=== PATIENT | male | born 1940 | race Caucasian/White ===

== ENCOUNTER 2018-10-24 11:22 | Observation (INO) | payer MEDICARE, OTHER ==
[2018-10-24 11:51] VITALS: BMI 29.0
--- NOTE | 2018-10-24 12:19 | PDOC ---
History of Present Illness - General Chief Complaint: Chest Pain Stated Complaint: CHEST PAIN / NUMB LF ARM Time Seen by Provider: 10/24/18 12:18 History Source: Patient, Family Exam Limitations: Language Barrier - History of Present Illness Initial Comments: 10/24/18 13:10 History obtained with assistance of granddaughter at bedside (Kim ) Patient is a 78 year old male recently immigrated from [facility] 2 months ago, with history of Afib (not on anticoagulation), hypertension, presents with complaint of chest pain worsening over the past three days. Patient describes left sided pressure and tightness that radiates down his left arm associated with shortness of breath, and dizziness. Pain is exertional lasting 10-15 minutes, resolving with rest; however pain also occurs with rest. He denies having these symptoms in the past. For the past three weeks, he endorses associated palpitations that prompted him to double his dose of Amiodarone. Patient also endorses nausea without vomiting, and nonproductive cough ongoing for the past week. Denies hemoptysis. Patient last visited his homicide investigator in [facility] one year ago. Denies history of OH, stress test, or cardiac catheterization. Uncertain as to why patient was never started on anticoagulation; patient denies history of hemorrhagic stroke, any GI bleeding, history of frequent falls. He denies subjective fevers, chills. PMH: Afib, hypertension, benign prostatic hyperplasia, glaucoma (right eye), gastritis PSH: Cholecystectomy, appendectomy, right inguinal hernia repair, prostate resection, right eye cataract surgery Family history: Father- at 42 years old secondary to CO poisoning Mother- at 89 years old 'old age' No history of OH, stroke, or cancer in his family. Allergies: NKDA Social: Lives with his granddaughter. Denies smoking history. Drinks one glass of wine on holidays. 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 Ambulates at baseline without cane, or walker. Past History - Travel Traveled outside of the country in the last 30 days: No Close contact w/someone who was outside of country & ill: No - Past Medical History Allergies/Adverse Reactions: Allergies Allergy/AdvReac Type Severity Reaction Status Date / Time No Known Allergies Allergy Verified 10/24/18 11:49 Home Medications: Ambulatory Orders Amiodarone HCl [Cordarone -] 200 mg PO BID 10/24/18 Amlodipine Besylate/Valsartan [Amlodipine-Valsartan 5-160 mg] 1 each PO DAILY Aspirin [ASA -] 81 mg PO DAILY 10/24/18 Digoxin [Lanoxin -] 0.25 mg PO DAILY 10/24/18 Omeprazole Magnesium [Prilosec Otc] 20 mg PO DAILY 10/24/18 Cardiac Disorders: Yes Hx Myocardial Infarction: No CVA: No COPD: No DVT: No Hx Glaucoma: Yes HTN: Yes Other medical history: poor historian - Surgical History Abdominal Surgery: Yes (hernia repair) Appendectomy: Yes Cholecystectomy: Yes Other Surgical History: 10/24/18 13:24 Prostate resection - Family Disease History Family Disease History: Other: Father ( due to CO poisoning (42 years old)) - Immunization History Immunization Up to Date: Yes - Suicide/Smoking/Psychosocial Hx Smoking History: Never smoked Hx Alcohol Use: No Drug/Substance Use Hx: No Substance Use Type: None Patient Lives Alone: No Review of Systems - Review of Systems Constitutional: No: Chills, Diaphoresis, Fever, Night Sweats HEENTM: Yes: Cataracts. No: Recent change in vision, Double Vision, Throat Pain , Throat Swelling, Difficulty Swallowing Respiratory: Yes: Cough, Shortness of Breath. No: Stridor, Wheezing, Productive cough, Hemoptysis Cardiac (ROS): Yes: Chest Pain, Irregular Heart Rate, Lightheadedness, Palpitations, Chest Tightness. No: Edema, Syncope ABD/GI: No: Abdominal Distended, Blood Streaked Bowels, Diarrhea, Rectal Bleeding, Vomiting, Tarry Stools : No: Burning, Dysuria, Discharge, Hematuria Musculoskeletal: No: Back Pain, Joint Swelling, Muscle Weakness, Joint Stiffness Neurological: Yes: Numbness (left arm), Dizziness. No: Headache, Weakness *Physical Exam - Vital Signs Last Vital Signs Temp Pulse Resp BP Pulse Ox 97.5 F L 57 L 18 122/80 99 10/24/18 11:49 10/24/18 11:49 10/24/18 11:49 10/24/18 11:49 10/24/18 11:49 - Physical Exam General Appearance: Yes: Appropriately Dressed. No: Apparent Distress, Disheveled HEENT: positive: EOMI, GLORIA. negative: Scleral Icterus (R), Scleral Icterus (L) , Pharyngeal Erythema, Tonsillar Exudate Neck: positive: Trachea midline, Supple. negative: Carotid bruit, Lymphadenopathy (R), Lymphadenopathy (L), Thyromegaly Respiratory/Chest: positive: Lungs Clear, Normal Breath Sounds. negative: Respiratory Distress, Accessory Muscle Use, Crackles, Rales, Wheezing Cardiovascular: positive: S1, S2, Irregularly Irregular, Other (chest pain notreproducible upon palpation). negative: Edema, Murmur Vascular Pulses: Dorsalis-Pedis (R): 2+, Doralis-Pedis (L): 2+ Gastrointestinal/Abdominal: positive: Soft, Other (scar right lower quadrant from appendectomy. laparoscopic scars from cholecystectomy). negative: Guarding , Rebound, Tenderness, Hepatomegaly Musculoskeletal: negative: Decreased Range of Motion Extremity: positive: Normal Range of Motion. negative: Swelling, Calf Tenderness (no calf tenderness bilaterally) Integumentary: positive: Dry, Warm, Other (bruising noted from 'cupping' upon back and left chest) Neurologic: positive: corporate claims examiner II-XII NML intact, Fully Oriented, Alert, Motor Strength 5/5 Heart Score/ECG Review - History History: Moderately suspicious - Electrocardiogram EKG: Non specific repolarization disturbance - Age Age: >/= 65 - Risk Factors Risk Factors Heart Score: Yes Hx Hypertension - Troponin Troponin: </= normal limit ED Treatment Course - LABORATORY CBC & Chemistry Diagram: 10/24/18 13:13 10/24/18 13:13 Medical Decision Making - Medical Decision Making 10/24/18 13:32 Patient is a 78 year old male with history of Afib (not on anticoagulation), hypertension, presents with complaint of chest pressure and tightness. Differential diagnosis of ACS, PE, CHF, hyperthyroidism/ hypothyroidism due to recent increase in Amiodarone. EKG shows Afib with slow ventricular response at 58 BPM. No comparison available Will draw CBC, CMP, BNP, troponins, TSH, digoxin level, d-dimer Ordered chest radiograph, cardiac ECHO carotid duplex. 10/24/18 14:19 Chest radiograph without acute infiltrates. Troponin 0.02 TSH 2.41 Digoxin level 1.65 D-dimer 290; PE less likely on differential, despite recent travel history BNP elevated at 1410.2- no prior values for comparison. Patient does not appear fluid overloaded. HEART score 5; moderate score 10/24/18 15:08 Admit for Telemetry observation *DC/Admit/Observation/Transfer Diagnosis at time of Disposition: Unstable angina - Discharge Dispostion Decision to Admit order: Yes - Referrals - Patient Instructions - Post Discharge Activity
[2018-10-24 13:31] LABS: HEMATOCRIT 45.6 % (35.4-49); HEMOGLOBIN 15.2 GM/dL (11.7-16.9); MCH 31.4 pg (25.7-33.7); MCHC 33.4 g/dl (32.0-35.9); MEAN CELL VOLUME 94.1 fl (80-96); MEAN PLT VOLUME 10.4 fl (7.5-11.1); PLATELET COUNT 132 K/MM3 (134-434); RBC 4.85 M/mm3 (4.00-5.60); RDW 13.1 % (11.9-15.9); WHITE BLOOD COUNT 4.5 K/mm3 (4.0-10.0)
[2018-10-24 14:11] LABS: ALBUMIN 3.7 g/dl (3.4-5.0); ALK PHOS 87 U/L (45-117); ANION GAP 4 MMOL/L (8-16); BILIRUBIN,TOTAL 1.2 mg/dL (0.2-1); BLOOD UREA NITROGEN 17 mg/dL (7-18); CALCIUM 8.8 mg/dL (8.5-10.1); CHLORIDE 109 mmol/L (98-107); CO2 29 mmol/L (21-32); CREATININE 1.3 mg/dL (0.55-1.3); GLUCOSE,RANDOM 82 mg/dL (74-106); N-TERMINAL BNP 1410.2 pg/ml (5-450); POTASSIUM 4.2 mmol/L (3.5-5.1); SGOT/AST 27 U/L (15-37); SGPT/ALT 36 U/L (13-61); SODIUM 141 mmol/L (136-145); TOT PROT 6.4 g/dl (6.4-8.2)
--- NOTE | 2018-10-24 15:09 | PDOC ---
Documentation entered by Maria Isabel Ricci SCRIBE, acting as scribe for Arie Carias MD. Arie Carias MD: This documentation has been prepared by the Radhames hearn Amanda, SCRIBE, under my direction and personally reviewed by me in its entirety. I confirm that the documentation accurately reflects all work, treatment, procedures, and medical decision making performed by me. Attending Attestation - Resident Resident Name: Ezio Velez - ED Attending Attestation I have performed the following: I have examined & evaluated the patient, The case was reviewed & discussed with the resident, I agree w/resident's findings & plan, Exceptions are as noted - HPI HPI: 10/24/18 13:06 The patient is a 78 year old male, with a significant past medical history of Afib (not on AC), hypertension, benign prostatic hyperplasia, glaucoma (right eye), gastritis, who presents to the emergency department with 4 days of chest pain with associated shortness of breath and dizziness. He reports the chest pain as a pressure which radiates to his left arm. He also reports left upper extremity numbness. He reports traveling back from [facility] 2 months ago. The patient denies headache. The patient denies fever, chills, nausea, vomit, diarrhea and constipation. The patient denies dysuria, frequency, urgency and hematuria. Allergies: NKDA Past surgical history: hernia repair (R inguinal), prostatectomy, Left cataract Social history: occasional ETOH - Physicial Exam PE: 10/24/18 13:06 GENERAL: Awake, alert, and fully oriented, in no acute distress. HEAD: No signs of trauma EYES: PERRLA, EOMI, sclera anicteric, conjunctiva clear ENT: Auricles normal inspection, hearing grossly normal, nares patent, oropharynx clear without exudates. Moist mucosa NECK: Nontender, no stepoffs, Normal ROM, supple, no lymphadenopathy, JVD, or masses LUNGS: Breath sounds equal, clear to auscultation bilaterally. No wheezes, and no crackles HEART: Regular rate and rhythm, normal S1 and S2, no murmurs, rubs or gallops ABDOMEN: Soft, nontender, normoactive bowel sounds. No guarding, no rebound. No masses EXTREMITIES: Normal range of motion, no edema. No clubbing or cyanosis. No cords, erythema, or tenderness NEUROLOGICAL: Cranial nerves II through XII intact. 5/5 strength and sensation in all extremities, Normal speech, normal cerebellar function SKIN: Warm, Dry, normal turgor, no rashes or lesions noted. - Medical Decision Making 10/24/18 14:29 78 M with chest pain. Will r/o ACS. Also consider PE given recent travel. Pt with no evidence of volume overload but consider CHF. - Labs, trop, BNP, ddimer - CXR - Admit tele 10/24/18 15:48 Pt admitted to hospitalist 10/24/18 17:47 Dr. Arriaza now requesting transfer to [facility]
--- NOTE | 2018-10-24 15:09 | CON.CARD ---
Consult Consult Specialty:: Cardiology Referred by:: chest pain, afib Reason for Consultation:: chest pain, afib - History of Present Illness Chief Complaint: chest pain, palpitations History of Present Illness: 78 year old man with pmh HTN, AFib not on AC on amio and digoxin, bph, glaucoma , gastritis, recently moved from [facility] 2 months ago now living with his grandamaury who is an RN came to the ER with c/o 3 day history of L sided chest tightness radiating to his L arm with associated sob that has been mainly with exertion but also at rest at times and 3 week h/o palpitations for which he increased his amiodarone to 200mg bid. Also notes dizziness over the past few days. As per his granddaughter she believes he was not taking his medications while in the [facility] and recently restarted his Digoxin. Never had an ischemic work up previously. Not sure why he is not on AC, no obvious contraindications. Pt was seen and examined in the ER in [place]. currently comfortable asymptomatic. - History Source History Provided By: Patient, Family Member Limitations to Obtaining History: Language Barrier - Past Medical History Cardio/Vascular: Yes: AFIB, HTN Renal/: Yes: BPH - Alcohol/Substance Use Hx Alcohol Use: No - Smoking History Smoking history: Never smoked - Social History Usual Living Arrangement: With Child ADL: Family Assistance History of Recent Travel: No Home Medications - Allergies Allergies/Adverse Reactions: Allergies Allergy/AdvReac Type Severity Reaction Status Date / Time No Known Allergies Allergy Verified 10/24/18 11:49 - Home Medications Home Medications: Ambulatory Orders Amiodarone HCl [Cordarone -] 200 mg PO BID 10/24/18 Amlodipine Besylate/Valsartan [Amlodipine-Valsartan 5-160 mg] 1 each PO DAILY Aspirin [ASA -] 81 mg PO DAILY 10/24/18 Digoxin [Lanoxin -] 0.25 mg PO DAILY 10/24/18 Omeprazole Magnesium [Prilosec Otc] 20 mg PO DAILY 10/24/18 Family Disease History - Family Disease History Family History: Denies Review of Systems - Review of Systems Constitutional: denies: No Symptoms, Chills, Diaphoresis, Fever, Lethargy, Loss of Appetite, Malaise, Night Sweats, Unintentional Wgt. Loss, Weakness, Other Eyes: denies: No Symptoms, Blind Spots, Blurred Vision, Double Vision, Eye Pain , Floaters, Photophobia, Recent Change in Vision, Other HENT: denies: No Symptoms, Difficult Swallowing, Ear Discharge, Ear Pain, Epistaxis, Gingival Bleeding, Hearing Loss, Mouth Swelling, Nasal Congestion, Ocular Prosthesis, Throat Pain, Toothache, Ringing in Ears, Other Neck: denies: No Symptoms, Decreased ROM, Lumps, Pain on Movement, Stiffness, Swollen Glands, Tenderness, Other Cardiovascular: reports: Chest Pain, Palpitations, Shortness of Breath. denies : No Symptoms, Edema, Other Respiratory: reports: SOB, SOB on Exertion. denies: No Symptoms, Cough, Exercise Intolerance, Hemoptysis, Orthopnea, PND, Snoring, Wheezing, Other Gastrointestinal: reports: Nausea. denies: No Symptoms, Abdominal Pain, Bloating, Constipation, Diarrhea, Dysphagia, Indigestion, Melena, Rectal Bleeding, Vomiting, Vomiting Blood, Other Genitourinary: denies: No Symptoms, Burning, Discharge, Dysuria, Flank Pain, Frequency, Hematuria, Incontinence, Lesions, Menses, Pain, Testicular Mass, Testicular Pain, Testicular Swelling, Urgency, Vaginal Bleeding, Other Breasts: denies: No Symptoms Reported, See HPI, Breast Implants, Discharge from Nipple, Lumps, Pain, Skin Changes, Other Musculoskeletal: denies: No Symptoms, Back Pain, Crepitus, Decreased ROM, Extremity Pain, Joint Pain, Joint Swelling, Muscle Pain, Muscle Cramps, Muscle Weakness, Other Integumentary: denies: No Symptoms, Blister, Bruising, Change in Color, Eczema, Erythema, Incision, Lesions, Lump, Pallor, Pruritis, Rash, Wound, Other Neurological: reports: Dizziness. denies: No Symptoms, Change in LOC, Change in Speech, Confusion, Headache, Incoordination, Numbness, Parasthesia, Pre- Existing Deficit, Seizure, Syncope, Tremors, Unsteady Gait, Weakness, Other Endocrine: denies: No Symptoms, Excessive Sweating, Flushing, Increased Hunger, Increased Thirst, Intolerance to Cold, Intolerance to Heat, Unexplained Weight Gain, Unexplained Weight Loss, Other Hematology/Lymphatic: denies: No Symptoms, Easily Bruised, Excessive Bleeding, Swollen Glands, Other Psychiatric: denies: No Symptoms, Altered Sleep Pattern, Anxiety, Depression, Hallucinations, Panic, Paranoia, Suicidal, Other - Risk Factors Known Risk Factors: Yes: Age, Hypertension Vital Signs: Vital Signs Temperature 97.5 F L 10/24/18 11:49 Pulse Rate 58 L 10/24/18 12:54 Respiratory Rate 16 10/24/18 12:54 Blood Pressure 147/91 10/24/18 12:54 O2 Sat by Pulse Oximetry (%) 97 10/24/18 12:54 Constitutional: Yes: Well Nourished, No Distress, Calm Eyes: Yes: Conjunctiva Clear, EOM Intact, PERRL HENT: Yes: Atraumatic, Normocephalic Neck: Yes: Supple, Trachea Midline Respiratory: Yes: Regular, CTA Bilaterally. No: Rales, Rhonchi, Wheezes Gastrointestinal: Yes: Normal Bowel Sounds, Soft. No: Distention, Tenderness Renal/: Yes: WNL Cardiovascular: Yes: Pulse Irregular. No: Regular Rate and Rhythm, Bradycardia , Tachycardia, Gallop, Rub, Varicosities JVD: No Carotid Bruit: No PMI: Non-Displaced Heart Sounds: Yes: S1, S2. No: Split S2, S3, S4, Clicks, Gallop, Rub, Bruit Murmur: No: Systolic Murmur, Diastolic Murmur Musculoskeletal: Yes: WNL Extremities: Yes: WNL Edema: No Peripheral Pulses WNL: Yes Peripheral Pulses: 2+ Left Doralis Pedis, 2+ Right Dorsalis Pedis Integumentary: Yes: WNL Neurological: Yes: WNL, Alert, Oriented, Cran Nerves II-XII Intact ...Motor Strength: WNL Psychiatric: Yes: WNL, Alert, Oriented - Other Data Labs, Other Data: CBC, BMP 10/24/18 13:13 10/24/18 13:13 Troponin, BNP 10/24/18 13:13 Troponin I < 0.02 B-Natriuretic Peptide 1410.2 H Troponin, BNP 10/24/18 13:13 Troponin I < 0.02 B-Natriuretic Peptide 1410.2 H EKG-AFib 58bpm, no ischemia Echo: Pending Imaging - Results Chest X-ray: Report Reviewed, Image Reviewed EKG: Report Reviewed, Image Reviewed Other: Report Reviewed, Image Reviewed Assessment/Plan 78 year old man with pmh HTN, AFib not on AC on amio and digoxin, bph, glaucoma , gastritis, recently moved from [facility] 2 months ago now living with his granddazaid who is an RN came to the ER with c/o 3 day history of L sided chest tightness radiating to his L arm with associated sob that has been mainly with exertion but also at rest at times and 3 week h/o palpitations for which he increased his amiodarone to 200mg bid. Also notes dizziness over the past few days. As per his granddaughter she believes he was not taking his medications while in the [facility] and recently restarted his Digoxin. Never had an ischemic work up previously. Not sure why he is not on AC, no obvious contraindications. Chest pain/sob-concerning for typical angina/unstable angina -no ischemia on ekg -troponin x 1 wnl -add CK level to trop -trend serial cardiac enzymes and ekgs -admit to tele -cont ASA 81mg daily -start Lipitor -start full AC with heparin gtt or Lovenox (for both Afib and unstable angina) -no bblocker for now given sinus bradycardia while on Amio and Digoxin -check echo -if LVEF wnl and cardiac enzymes remain wnl, with no further chest pain, plan for nuclear stress test tomorrow to evaluate for ischemia -if any of the above abnl will recc cardiac cath -keep npo after midnight tonight except meds for stress test tomorrow Atrial fibrillation-unknown if chronic or paroxysmal -afib on ER ekg with controlled HR 58bpm -recent palpitations and thus he had been taking amiodarone 200mg bid for the past few weeks -no prior medical records available for review -not on a bblocker -Would stop amiodarone and Digoxin -monitor tele -if HR becomes uncontrolled would then start Metoprolol and titrate for HR control -was not on full AC prior to admission only ASA 81mg daily started recently by his granddaughter -start heparin gtt or Lovenox with plan for full AC on discharge
[2018-10-24 15:16] VITALS: TEMP 98.7
[2018-10-24] MEDS ORDERED: NITROGLYCERIN SUBLINGUAL 1/150 0.4 MG TAB SL PRN (16:53)
[2018-10-24] MEDS ORDERED: NITROGLYCERIN SUBLINGUAL 1/150 0.4 MG TAB SL ONE (16:53)
[2018-10-24] MEDS ORDERED: NITROGLYCERIN SUBLINGUAL 1/150 0.4 MG TAB ONE (17:02)
[2018-10-24] MEDS ORDERED: HEPARIN NA (PORCINE) 5,000 UNITS/ML 1ML VIAL IVPUSH PRN ×2 (17:10)
[2018-10-24] MEDS ORDERED: HEPARIN - 25,000 UNIT in SODIUM CHLORIDE 495 ML IV SCH (17:15)
[2018-10-24] MEDS ORDERED: CLOPIDOGREL BISULFATE 300 MG TABLET PO ONE (17:28)
[2018-10-24] MEDS ORDERED: ATORVASTATIN CA 80 MG TABLET (FP) PO ONE (17:28)
[2018-10-24] MEDS ORDERED: ASPIRIN 81 MG CHEWABLE TABLETS PO ONE (17:29)
[2018-10-24] MEDS ORDERED: HEPARIN NA (PORCINE) 5,000 UNITS/ML 1ML VIAL ONE (17:31)
[2018-10-24] MEDS ORDERED: HEPARIN INFUSION - 25,000 UNITS/500 ML INFUS.BAG IVPB ONE (17:31)
[2018-10-24] MEDS ORDERED: ASPIRIN 81 MG CHEWABLE TABLETS ONE (17:34)
[2018-10-24] MEDS ORDERED: CLOPIDOGREL BISULFATE 300 MG TABLET ONE (17:34)
[2018-10-24] MEDS ORDERED: ATORVASTATIN CA 80 MG TABLET (FP) ONE (17:35)
--- NOTE | 2018-10-24 17:48 | HP ---
Admitting History and Physical - Admission Chief Complaint: chest pain History of Present Illness: 78 year old male with pmh HTN, AFib not on AC on amio and digoxin, bph, glaucoma , gastritis, recently moved from [facility] 2 months ago now living with his granddaughter who is an RN presented to the ED with left sided chest pain and pressure radiation to left arm x3 days with sob and palpitations and dizziness. Increased palpitations x 3 weeks and increased palpitations and increased his dose of amio to 200 BID. Not on AC as not practiced in [facility]. While in ED pt reported to granddaughter his chest pain is worsen now and its going down his left arm History Source: Family Member Limitations to Obtaining History: Language Barrier - Past Medical History Cardiovascular: Yes: AFIB, HTN Renal/: Yes: BPH - Smoking History Smoking history: Never smoked - Alcohol/Substance Use Hx Alcohol Use: No - Social History ADL: Family Assistance History of Recent Travel: No Home Medications - Allergies Allergies/Adverse Reactions: Allergies Allergy/AdvReac Type Severity Reaction Status Date / Time No Known Allergies Allergy Verified 10/24/18 11:49 - Home Medications Home Medications: Ambulatory Orders Amlodipine Besylate/Valsartan [Amlodipine-Valsartan 5-160 mg] 1 each PO DAILY Aspirin [ASA -] 81 mg PO DAILY 10/24/18 Digoxin [Lanoxin -] 0.25 mg PO DAILY 10/24/18 Omeprazole Magnesium [Prilosec Otc] 20 mg PO DAILY 10/24/18 Review of Systems - Review of Systems Constitutional: reports: No Symptoms Eyes: reports: No Symptoms HENT: reports: No Symptoms Neck: reports: No Symptoms Cardiovascular: reports: Chest Pain, Palpitations, Shortness of Breath Respiratory: reports: SOB on Exertion Gastrointestinal: reports: No Symptoms Genitourinary: reports: No Symptoms Musculoskeletal: reports: No Symptoms Integumentary: reports: No Symptoms Neurological: reports: No Symptoms Endocrine: reports: No Symptoms Hematology/Lymphatic: reports: No Symptoms Psychiatric: reports: No Symptoms Physical Examination Vital Signs: Vital Signs Temperature 98.7 F 10/24/18 15:16 Pulse Rate 59 L 10/24/18 15:16 Respiratory Rate 16 10/24/18 15:16 Blood Pressure 136/87 10/24/18 15:16 O2 Sat by Pulse Oximetry (%) 96 10/24/18 15:16 Constitutional: Yes: Well Nourished Eyes: Yes: Conjunctiva Clear HENT: Yes: Atraumatic Neck: Yes: WNL Cardiovascular: Yes: Pulse Irregular, S1, S2, Other Respiratory: Yes: Regular, CTA Bilaterally Gastrointestinal: Yes: Normal Bowel Sounds, Soft Renal/: Yes: WNL Musculoskeletal: Yes: WNL Extremities: Yes: WNL Edema: No Integumentary: Yes: WNL Neurological: Yes: Alert, Oriented, Cran Nerves II-XII Intact Labs: CBC, BMP 10/24/18 13:13 10/24/18 13:13 Imaging - Results Chest X-ray: Report Reviewed, Image Reviewed Ultrasound: Report Reviewed Problem List - Problems (1) Unstable angina Code(s): I20.0 - UNSTABLE ANGINA Assessment/Plan Assessment: 78 year old male with acute chest pain and pressure Plan: 1. Unstable angina - Serial trop with ck next @1900 - Trop x1 neg - Send tsh, lipid, hgb a1c - Chest pain persistent, give nitro sl x1 now - Start heparin gtt - Discussed with Cardiology, in light of worsening/persistent cp will transfer for cardiac cath, case d/w grand daughter - Give plavix 600mg x1 now - Give additional asa 81mg now - plts 132 - Hold dig and amio Visit type - Emergency Visit Emergency Visit: Yes ED Registration Date: 10/24/18 Care time: The patient presented to the Emergency Department on the above date and was hospitalized for further evaluation of their emergent condition. - New Patient This patient is new to me today: Yes Date on this admission: 10/24/18 - Critical Care Critical Care patient: No
[2018-10-24 18:49] VITALS: BP 100/68; PULSE 52
[2018-10-24 19:22] LABS: CHOLESTEROL 121 mg/dL (50-200); HDL CHOLESTEROL 65 mg/dL (40-60); TRIGLYCERIDES 39 mg/dL (0-150)
--- NOTE | 2018-10-25 17:18 | EKG ---
Test Reason : Blood Pressure : / mmHG Vent. Rate : 058 BPM Atrial Rate : 046 BPM P-R Int : 000 ms QRS Dur : 094 ms QT Int : 430 ms P-R-T Axes : 000 008 001 degrees QTc Int : 422 ms ATRIAL FIBRILLATION WITH SLOW VENTRICULAR RESPONSE ABNORMAL ECG NO PREVIOUS ECGS AVAILABLE Confirmed by FOSTER MO MD ([id number]) on 10/25/2018 5:18:20 PM Referred By: Confirmed By:FOSTER MO MD
== END 2018-10-24 20:30 | disposition short-term general hospital (02) ==
LOC: JER 11:22 → JERBED 15:07
PROVIDERS: ADMIT Internal Medicine; ATTEND Internal Medicine
PROC: 3E033GC Introduction of Other Therapeutic Substance into Peripheral Vein, Percutaneous Approach (ICD-10-PCS; principal; 2018-10-24)
DX: I20.0 Unstable angina (principal); I10 Essential (primary) hypertension; I48.91 Unspecified atrial fibrillation; N40.0 Benign prostatic hyperplasia without lower urinary tract symptoms; H40.9 Unspecified glaucoma
CPT/HCPCS: 36415; 71045-TC-FY; 80053; 80061; 80162; 82550; 83036; 83721; 83880; 84443; 84484; 85027; 85379; 93005; 93010; 93880-TC; 96374; 96376; 99285-25; G0378; J1644

== ENCOUNTER 2019-07-03 19:26 | Emergency (ER) | payer OTHER ==
--- NOTE | 2019-07-03 20:25 | PDOC ---
Rapid Medical Evaluation Time Seen by Provider: 07/03/19 20:20 Medical Evaluation: Allergies Allergy/AdvReac Type Severity Reaction Status Date / Time No Known Allergies Allergy Verified 10/24/18 11:49 07/03/19 20:21 Pt presents for injuries after a fall. He states he was trying to sit down when he missed the chair and landed on his bottom. He has lower back pain and l hip pain. Denies head injury/loc. States it hurts to sit. Denies numbness and tingling, saddle anesthesia and bladder/bowel incontinence. Pt is on eliquis and aspirin. Exam: ambulatory with mild limp. AAOx3 Orders: Hip/low back x-rays Pt to proceed to the ER for evaluation Discharge Disposition - Diagnosis Back pain Qualifiers: Back pain location: low back pain Chronicity: acute Back pain laterality: left Sciatica presence: without sciatica Qualified Code(s): M54.5 - Low back pain - Referrals - Patient Instructions - Post Discharge Activity
[2019-07-03 20:29] VITALS: BP 122/94; PULSE 100; TEMP 97.7; BMI 27.4
--- NOTE | 2019-07-03 20:55 | PDOC ---
History of Present Illness - General Chief Complaint: Injury Stated Complaint: FALL Time Seen by Provider: 07/03/19 20:20 - History of Present Illness Initial Comments: 07/03/19 22:12 HPI: 79 y/o M with hx of HTN (not currently on meds given improved BP), Afib on eliquis, BPH, gastritis presenting with left hip and buttock pain. Patient experienced a mechanical fall 4 days ago while he was trying to sit on a chair. He landed on his buttock and hands. No head trauma or LOC. There was no LH, KHALIL, n/v, abd pain, chest pain, palpitations, SOB, diaphoresis during this episode. Pain is currently worse when he sits upright and puts pressure on the bony prtuberance of his left buttock i.e. pubic ramus. Patient is ambulatory without assist. Of note, granddaughter at the bedside noted that 2 days ago, while walking around the house patient felt chest tightness without radiation that lasted 20min associated with SOB. Epsiode lasted 20minutes and resolved after taking his 's BP meds and taking a nitroglycerin. Episode has not recurred since. PMHx: as noted above ROS: as noted SHx: Denies tobacco use; no alcohol use; no rec drugs Allergies: NKDA ROS: GENERAL/CONSTITUTIONAL: No fever or chills. No weakness. HEAD, EYES, EARS, NOSE AND THROAT: No change in vision. No ear pain or discharge. No sore throat. CARDIOVASCULAR: +chest pain and shortness of breath RESPIRATORY: No cough, wheezing, or hemoptysis. GASTROINTESTINAL: No nausea, vomiting, diarrhea or constipation. GENITOURINARY: No dysuria, frequency, or change in urination. MUSCULOSKELETAL: +left buttock pain SKIN: No rash NEUROLOGIC: No headache, vertigo, loss of consciousness, or change in strength/ sensation. ENDOCRINE: No increased thirst. No abnormal weight change HEMATOLOGIC/LYMPHATIC: No anemia, easy bleeding, or history of blood clots. ALLERGIC/IMMUNOLOGIC: No hives or skin allergy. PE: GENERAL: Awake, alert, and fully oriented, no acute distress HEAD: No signs of trauma, normocephalic, atraumatic EYES: EOMI, sclera anicteric, conjunctiva clear ENT: Auricles normal inspection, hearing grossly normal, nares patent, oropharynx clear without exudates. Moist mucosa NECK: Normal ROM, no lymphadenopathy LUNGS: No increased work of breathing, symmetrical chest rise, clear to auscultation bilaterally, no wheezes, crackles or rhonchi HEART: Regular rate and rhythm, normal S1 and S2, no murmur, peripheral pulses 2 + and equal bilaterally. ABDOMEN: Soft, nondistended, nontender, normoactive bowel sounds. No guarding, no rebound. No masses. No CVAT MUSCULOSKELETAL: FROM; left buttock ecchymosis, left lower back ecchymosis, left popliteral fossa and proximal area ecchymosis, left buttock ttp at bony protuberance. no obvious deformity NEUROLOGICAL: Cranial nerves II through XII grossly intact. Normal speech, normal gait, no focal sensorimotor deficits. 5/5 str SKIN: Warm, Dry, normal turgor, no rashes or lesions noted Past History - Past Medical History Allergies/Adverse Reactions: Allergies Allergy/AdvReac Type Severity Reaction Status Date / Time No Known Allergies Allergy Verified 10/24/18 11:49 Home Medications: Ambulatory Orders Amlodipine Besylate/Valsartan [Amlodipine-Valsartan 5-160 mg] 1 each PO DAILY Aspirin [ASA -] 81 mg PO DAILY 10/24/18 Digoxin [Lanoxin -] 0.25 mg PO DAILY 10/24/18 Omeprazole Magnesium [Prilosec Otc] 20 mg PO DAILY 10/24/18 Cardiac Disorders: Yes (AFIB on Eliquis) CVA: Yes (TIA) COPD: No DVT: No HTN: Yes - Surgical History Abdominal Surgery: Yes (hernia repair) Appendectomy: Yes Cholecystectomy: Yes - Immunization History Immunization Up to Date: Yes - Psycho Social/Smoking Cessation Hx Smoking History: Never smoked Hx Alcohol Use: No Drug/Substance Use Hx: No Substance Use Type: None *Physical Exam - Vital Signs Last Vital Signs Temp Pulse Resp BP Pulse Ox 97.7 F 100 H 20 122/94 98 07/03/19 20:24 07/03/19 20:24 07/03/19 20:24 07/03/19 20:24 07/03/19 20:24 ED Treatment Course - LABORATORY CBC & Chemistry Diagram: 07/03/19 21:43 07/03/19 21:43 Medical Decision Making - Medical Decision Making 07/03/19 22:23 79 y/o M with hx of HTN (not currently on meds given improved BP), Afib on eliquis, BPH, gastritis presenting with left hip and buttock pain following a mechanical fall 4 days ago. Also with 1 episode of chest tightness and SOB 2 days ago that resolved following medication. VSS, AF. PE with left buttock ecchymosis, left lower back ecchymosis, left popliteral fossa and proximal area ecchymosis, left buttock ttp at bony protuberance. no obvious deformity. will ruleout fracture -sacrum/lumbar xr, left hip and pelvis xr -cbc, cmp, trop, coags, ekg 07/03/19 23:18 labs wnl except for Tbili 1.7; no abd pain and ttp ekg with afib rate controlled, no donato/d XR with no evidence of fx discussed with family; will DC home with PCP followup and conservative management Discharge - Discharge Information Problems reviewed: Yes Clinical Impression/Diagnosis: Contusion of soft tissue, Contusion of bone Back pain Qualifiers: Back pain location: low back pain Chronicity: acute Back pain laterality: left Sciatica presence: without sciatica Qualified Code(s): M54.5 - Low back pain Condition: Stable Disposition: HOME - Follow up/Referral Referrals: Cleopatra Earl MD [Primary Care Provider] - - Patient Discharge Instructions Patient Printed Discharge Instructions: DI for Contusion Additional Instructions: Additional Instructions: Please return to the emergency department with any new or worsening symptoms or concerns. Please follow up with your primary care physician within 72 hours. Followup with your motor vehicle license clerk for re-evaluation of your chest tightness episode You may take tylenol 650mg every 6-8 hours for pain control. You may use ice packs as well to decrease pain and inflammation. - Post Discharge Activity
[2019-07-03 21:54] LABS: BASO % 0.7 % (0-2.0); EOS % 6.2 % (0-4.5); HEMATOCRIT 38.5 % (35.4-49); HEMOGLOBIN 13.4 GM/dL (11.7-16.9); LYMPH % 26.3 % (8-40); MCHC 34.7 g/dl (32.0-35.9); MEAN CELL VOLUME 92.4 fl (80-96); MEAN PLT VOLUME 10.4 fl (7.5-11.1); MONO % 10.5 % (3.8-10.2); NEUT % 56.3 % (42.8-82.8); PLATELET COUNT 195 K/MM3 (134-434); RBC 4.17 M/mm3 (4.00-5.60); RDW 13.1 % (11.9-15.9); WHITE BLOOD COUNT 5.7 K/mm3 (4.0-10.0)
--- NOTE | 2019-07-03 22:02 | PDOC ---
Documentation entered by Rosanna Bernstein SCRIBE, acting as scribe for Vianca Long DO. Vianca Long DO: This documentation has been prepared by the Day hearn Nirvannie, SCRIBE, under my direction and personally reviewed by me in its entirety. I confirm that the documentation accurately reflects all work, treatment, procedures, and medical decision making performed by me. Attending Attestation - Resident Resident Name: Keanu Lenz - ED Attending Attestation I have performed the following: I have examined & evaluated the patient, The case was reviewed & discussed with the resident, I agree w/resident's findings & plan, Exceptions are as noted - HPI HPI: 07/03/19 22:31 The patient is a 79 year old male, with a significant past medical history of Afib (not on anticoagulation), hypertension, who presents to the emergency department s/p mechanical fall 4 days ago with left buttock pain. As per granddaughter at bedside translating, patient attempted to sit 4 days ago at which time he missed the chair subsequently falling onto his buttocks. He endorses pain with seating. He was able without difficulty s/p fall. Granddaughter notes an episode of transient chest pain. Patient tested his blood pressure and it was found to be 160 systolic thus, he took his wifes blood pressure medications, a Nitroglycerin, went for a walk which relieved his symptoms. Patient presents to the ED for persistent pain while seated. He denies any urinary or bowel incontinence. He denies any recent fevers, chills , headache or dizziness. He denies any recent nausea, vomiting, diarrhea or constipation. He denies any recent chest pain or shortness of breath. He denies any recent dysuria, frequency, urgency or hematuria. Allergies: NKA - Physicial Exam PE: 07/03/19 22:32 Constitutional: Awake, alert, oriented. No acute distress. Head: Normocephalic. Atraumatic Eyes: PERRL. EOMI. Conjunctivae are not pale. ENT: Mucous membranes are moist and intact. Posterior pharynx without exudates or erythema. Uvula midline. Neck: Supple. Full ROM. No lymphadenopathy. Cardiovascular: +Irregularly irregular. Distal pulses are 2+ and symmetric. Pulmonary/Chest: No evidence of respiratory distress. Clear to auscultation bilaterally No wheezing, rales or rhonchi. Abdominal: Soft and non-distended. There is no tenderness. No rebound, guarding or rigidity. No organomegaly. No palpable masses. Good bowel sounds. Back: No CVA tenderness. Musculoskeletal: +Ecchymosis to the left buttock. +Ecchymosis to the left posterior hamstring. + Tenderness to the buttock hold at the sits bone. No edema. No cyanosis. No clubbing. Full range of motion in all extremities. No calf tenderness. Radial/pedal pulses are intact and 2+ bilaterally Skin: Skin is warm and dry. No petechiae. No purpura. Neurological: Alert and oriented to person, place, and time. Cranial nerves II -XII are grossly intact. Normal speech. Strength is grossly symmetric. No sensory deficits. Psychiatric: Good eye contact. Normal interaction, affect and behavior. - Medical Decision Making 07/03/19 21:59 a/p: 79yo male w a fall 4 days ago -denies head injury -fell backwards off a chair landing on his buttock -states also had a brief episode of cp 2 days ago - took his bp med after checking pressure at home that was 160systolic and pain resolved. has been ambulatory and walking since without cp -denies sob -pt with FROM of the LE -low suspicion for hip fx, suspect poss contusion/fx of pubic fami -will send labs, xrays -will monitor and reassess 07/03/19 22:28 trop neg labs reviewed 07/03/19 22:35 xray hip/pelvis and spine without acute fx suspect bone contusion and soft tissue stable for dc to home Heart Score/ECG Review - ECG Intrepretation Comment:: 07/03/19 22:01 afib at 82, nl axis, nl interval, no acute st/t wave findings
[2019-07-03 22:09] LABS: INR 1.19 (0.83-1.09); PROTHROMBIN TIME (PATIENT) 14.1 SEC (9.7-13.0)
[2019-07-03 22:24] LABS: ALBUMIN 3.6 g/dl (3.4-5.0); ALK PHOS 116 U/L (45-117); ANION GAP 5 MMOL/L (8-16); BILIRUBIN,TOTAL 1.7 mg/dL (0.2-1); BLOOD UREA NITROGEN 20.7 mg/dL (7-18); CALCIUM 8.9 mg/dL (8.5-10.1); CHLORIDE 109 mmol/L (98-107); CO2 28 mmol/L (21-32); CREATININE 1.1 mg/dL (0.55-1.3); GLUCOSE,RANDOM 109 mg/dL (74-106); SGOT/AST 29 U/L (15-37); SGPT/ALT 26 U/L (13-61); SODIUM 142 mmol/L (136-145); TOT PROT 6.7 g/dl (6.4-8.2)
--- NOTE | 2019-07-04 11:58 | EKG ---
Test Reason : Blood Pressure : / mmHG Vent. Rate : 082 BPM Atrial Rate : 102 BPM P-R Int : 000 ms QRS Dur : 094 ms QT Int : 384 ms P-R-T Axes : 000 019 038 degrees QTc Int : 448 ms ATRIAL FIBRILLATION ABNORMAL ECG WHEN COMPARED WITH ECG OF 24-OCT-2018 11:22, NONSPECIFIC T WAVE ABNORMALITY NO LONGER EVIDENT IN INFERIOR LEADS Confirmed by FOSTER MO MD ([id number]) on 07/04/2019 11:58:09 AM Referred By: Confirmed By:FOSTER MO MD
== END 2019-07-03 23:13 | disposition home or self-care (01) ==
LOC: JER 19:26
DX: N40.0 Benign prostatic hyperplasia without lower urinary tract symptoms (principal); M54.5 Low back pain; I48.91 Unspecified atrial fibrillation; Z79.01 Long term (current) use of anticoagulants; I10 Essential (primary) hypertension
CPT/HCPCS: 36415; 72100-TC-FY; 73523-TC-FY; 80053; 82550; 84484; 85025; 85610; 85730; 93005; 93010; 99283-25

== ENCOUNTER 2020-05-14 12:57 | Observation (INO) | payer OTHER ==
[2020-05-14 14:03] LABS: BASO % 0.5 % (0-2.0); HEMATOCRIT 47.8 % (35.4-49); HEMOGLOBIN 15.8 GM/dL (11.7-16.9); LYMPH % 24.9 % (8-40); MCHC 33.1 g/dl (32.0-35.9); MEAN CELL VOLUME 96.8 fl (80-96); MEAN PLT VOLUME 11.3 fl (7.5-11.1); MONO % 7.6 % (3.8-10.2); PLATELET COUNT 140 K/MM3 (134-434); RBC 4.94 M/mm3 (4.00-5.60); RDW 12.8 % (11.9-15.9); WHITE BLOOD COUNT 4.8 K/mm3 (4.0-10.0)
[2020-05-14 14:09] LABS: INR 1.53 (0.83-1.09); PROTHROMBIN TIME (PATIENT) 18.3 SEC (9.7-13.0)
[2020-05-14 14:11] LABS: ACTIVATED PTT 30.7 SECONDS (25.2-36.5)
[2020-05-14 14:15] LABS: POTASSIUM 4.2 mmol/L (3.5-5.1)
[2020-05-14 14:17] LABS: ALBUMIN 3.8 g/dl (3.4-5.0); CALCIUM 9.2 mg/dL (8.5-10.1)
[2020-05-14 14:20] LABS: CREATININE 1.4 mg/dL (0.55-1.3)
[2020-05-14 14:22] LABS: BILIRUBIN,TOTAL 1.7 mg/dL (0.2-1); TOT PROT 6.6 g/dl (6.4-8.2)
[2020-05-14 14:33] LABS: EPI CELLS 6 /uL (0-25.1); HYALINE CASTS 5 /uL (0-3.1); PH,URINE 5.5 (5.0-8.0); URINE APPEARANCE CLEAR; URINE BACTERIA 11 /uL (0-1359); URINE BILIRUBIN 1+ (NEGATIVE); URINE COLOR DK YELLOW; URINE GLUCOSE (UA) NEGATIVE (NEGATIVE); URINE KETONE 1+ (NEGATIVE); URINE LEUK ESTERASE TRACE (NEGATIVE); URINE NITRITE NEGATIVE (NEGATIVE); URINE PROTEIN NEGATIVE (NEGATIVE); URINE RBC 13 /uL (0-23.9); URINE WBC 6 /uL (0-25.8)
[2020-05-14] MEDS ORDERED: SODIUM CHLORIDE 0.9% 500 ML INFUS.BAG IV ONE (14:42)
[2020-05-14] MEDS ORDERED: ASPIRIN 81 MG CHEWABLE TABLETS PO ONE (14:43)
[2020-05-14] MEDS ORDERED: ASPIRIN 81 MG CHEWABLE TABLETS ONE (14:55)
[2020-05-14] MEDS ORDERED: MAG HYDROX/AL HYDROX/SIMETH 30 ML UNIT-DOSE CUP PO ONE (16:35)
[2020-05-14] MEDS ORDERED: MAG HYDROX/AL HYDROX/SIMETH 30 ML UNIT-DOSE CUP ONE (16:36)
[2020-05-14] MEDS ORDERED: SODIUM CHLORIDE 1,000 ML IV SCH ×2 (17:45→19:33)
[2020-05-14] MEDS ORDERED: SODIUM CHLORIDE 500 ML IV SCH (19:40)
[2020-05-14] MEDS: APIXABAN 5 MG TABLET PO SCH (22:00)
[2020-05-14] MEDS ORDERED: APIXABAN 5 MG TABLET ONE (22:59)
[2020-05-15] MEDS ORDERED: ACETAMINOPHEN 325 MG TABLET (FP) PO PRN (00:34)
[2020-05-15 06:14] LABS: BASO % 0.6 % (0-2.0); EOS % 2.8 % (0-4.5); HEMATOCRIT 45.2 % (35.4-49); HEMOGLOBIN 14.8 GM/dL (11.7-16.9); LYMPH % 28.6 % (8-40); MCH 31.5 pg (25.7-33.7); MCHC 32.7 g/dl (32.0-35.9); MEAN CELL VOLUME 96.1 fl (80-96); MEAN PLT VOLUME 11.3 fl (7.5-11.1); MONO % 9.1 % (3.8-10.2); NEUT % 58.9 % (42.8-82.8); PLATELET COUNT 120 K/MM3 (134-434); RBC 4.71 M/mm3 (4.00-5.60); RDW 12.6 % (11.9-15.9); WHITE BLOOD COUNT 4.8 K/mm3 (4.0-10.0)
[2020-05-15 06:15] LABS: CHLORIDE 113 mmol/L (98-107); POTASSIUM 4.1 mmol/L (3.5-5.1); SODIUM 143 mmol/L (136-145)
[2020-05-15 06:17] LABS: CALCIUM 8.6 mg/dL (8.5-10.1)
[2020-05-15 06:18] LABS: ALBUMIN 3.4 g/dl (3.4-5.0); ANION GAP 8 MMOL/L (8-16); CO2 22 mmol/L (21-32); GLUCOSE,RANDOM 86 mg/dL (74-106); MAGNESIUM 2.1 mg/dL (1.8-2.4)
[2020-05-15 06:21] LABS: CHOLESTEROL 87 mg/dL (50-200); CREATININE 1.1 mg/dL (0.55-1.3); SGOT/AST 17 U/L (15-37); SGPT/ALT 15 U/L (13-61); TRIGLYCERIDES 41 mg/dL (0-150)
[2020-05-15 06:22] LABS: BILIRUBIN,TOTAL 1.3 mg/dL (0.2-1); LDL CHOLESTEROL (ONLY SJRH) 39 mg/dL (5-100)
[2020-05-15 06:23] LABS: ALK PHOS 65 U/L (45-117); HDL CHOLESTEROL 51 mg/dL (40-60); N-TERMINAL BNP 1371.8 pg/ml (5-450)
[2020-05-15] MEDS ORDERED: ISOSORBIDE MONONITRATE 60 MG TAB.SR.24H (FP) PO SCH (10:00)
[2020-05-15] MEDS ORDERED: ASPIRIN 81 MG CHEWABLE TABLETS ONE (10:00)
[2020-05-15] MEDS ORDERED: BIMATOPROST OP SCH (10:00)
[2020-05-15] MEDS ORDERED: ASPIRIN 81 MG CHEWABLE TABLETS PO SCH (10:00)
[2020-05-15] MEDS ORDERED: ISOSORBIDE MONONITRATE 60 MG TAB.SR.24H (FP) PO ONE (10:01)
[2020-05-15] MEDS ORDERED: APIXABAN 5 MG TABLET ONE (10:01)
[2020-05-15] MEDS: APIXABAN 5 MG TABLET PO SCH (10:12)
[2020-05-15] MEDS ORDERED: PANTOPRAZOLE 40 MG TABLET PO SCH (14:15)
[2020-05-15] MEDS ORDERED: SODIUM CHLORIDE 1,000 ML IV SCH (14:30)
[2020-05-15] MEDS ORDERED: SODIUM CHLORIDE 250 ML IV STA (15:51)
[2020-05-15 16:23] VITALS: BP 149/89; PULSE 82; TEMP 97.7; BMI 27.8
[2020-05-15] MEDS ORDERED: LATANOPROST 0.005% OPHTH SOLN 2.5ML BOTTLE OS SCH (22:00)
== END 2020-05-15 19:01 | disposition home or self-care (01) ==
LOC: JER 12:57 → JERBED 13:52 → INTOOBSV 13:52 → OBSVTOIN 05-15 09:27 → J4S 05-15 11:46
PROVIDERS: ADMIT Internal Medicine; ATTEND Internal Medicine
PROC: 3E0337Z Introduction of Electrolytic and Water Balance Substance into Peripheral Vein, Percutaneous Approach (ICD-10-PCS; principal; 2020-05-14)
DX: I48.91 Unspecified atrial fibrillation (principal); N40.0 Benign prostatic hyperplasia without lower urinary tract symptoms; I25.10 Atherosclerotic heart disease of native coronary artery without angina pectoris; I11.9 Hypertensive heart disease without heart failure; Z86.73 Personal history of transient ischemic attack (TIA), and cerebral infarction without residual deficits; K29.70 Gastritis, unspecified, without bleeding; H54.8 Legal blindness, as defined in USA; Z87.890 Personal history of sex reassignment
CPT/HCPCS: 36415; 70450-TC; 71045-TC-FY; 80053; 80061; 81003; 82248; 82550; 82553; 82962; 83721; 83735; 83880; 84100; 84484; 85025; 85610; 85730; 87086; 93005; 93010; 96361; 96365; 97116-GP; 99285-25; C9803; G0378; U0003

== ENCOUNTER 2020-08-07 16:44 | Emergency (ER) | payer OTHER ==
[2020-08-07 17:00] VITALS: BMI 32.5
[2020-08-07] MEDS ORDERED: BAMLANIVIMAB 700 MG in SODIUM CHLORIDE 250 ML IVPB ONE (17:05)
[2020-08-07 17:45] LABS: HEMATOCRIT 44.1 % (35.4-49); HEMOGLOBIN 14.8 GM/dL (11.7-16.9); MCH 32.7 pg (25.7-33.7); MCHC 33.5 g/dl (32.0-35.9); MEAN CELL VOLUME 97.4 fl (80-96); PLATELET COUNT 125 K/MM3 (134-434); RBC 4.53 M/mm3 (4.00-5.60); RDW 13.5 % (11.9-15.9); WHITE BLOOD COUNT 3.3 K/mm3 (4.0-10.0)
[2020-08-07 17:53] LABS: POTASSIUM 5.1 mmol/L (3.5-5.1)
[2020-08-07 17:54] LABS: CALCIUM 8.8 mg/dL (8.5-10.1)
[2020-08-07 17:55] LABS: BLOOD UREA NITROGEN 14.2 mg/dL (7-18)
[2020-08-07 17:58] LABS: CREATININE 1.2 mg/dL (0.55-1.3)
[2020-08-07 23:22] VITALS: BP 133/79; PULSE 86; TEMP 98.9
== END 2020-08-07 21:05 | disposition home or self-care (01) ==
LOC: JCOVINFU 16:44
DX: U07.1 COVID-19 (principal)
CPT/HCPCS: 36415; 80048; 85027; 99284-25; M0239; Q0239